=== PATIENT | female | born 1970 | race Caucasian/White ===

== ENCOUNTER 2017-10-31 17:43 | Emergency (ER) | payer BC ==
[~2017-10-31] VITALS: Ht 152.4 cm; Wt 86.2 kg
[~2017-10-31 17:43] MED LIST: Clonazepam0.5 M1 PO; KETO10 PO; LEVSOD75 PO; METF500 PO; Metformin HCl500 M1 PO; PROM25 PO
[2017-10-31] MEDS ORDERED: SERT50 PO (18:19)
[2017-10-31 18:42] LABS: BASOPHILS ABSOLUTE AUTO 0.02 K/mm3 (0.00-0.23); BASOPHILS PERCENT AUTO 0 % (0-2); EOSINOPHILS ABSOLUTE AUTO 0.13 K/mm3 (0.00-0.68); EOSINOPHILS PERCENT AUTO 1 % (0-6); Hematocrit 41.7 % (33.0-51.0); Hemoglobin 14.3 g/dL (11.5-16.0); IMMATURE GRAN ABSOLUTE AUTO 0.02 K/mm3 (0.00-0.10); IMMATURE GRAN PERCENT AUTO 0 % (0-1); LYMPHOCYTES ABSOLUTE AUTO 3.85 K/mm3 (0.84-5.20); LYMPHOCYTES PERCENT AUTO 42 % (21-46); MONOCYTES PERCENT AUTO 10 % (4-13); Mean Corpuscular HGB 29.9 pg (26.0-34.0); Mean Corpuscular HGB Conc 34.3 g/dL (31.5-36.5); Mean Corpuscular Volume 87 fL (80-100); Mean Platelet Volume 9.9 fL (9.1-12.4); NEUTROPHILS ABSOLUTE AUTO 4.28 K/mm3 (1.96-9.15); NEUTROPHILS PERCENT AUTO 47 % (41-73); Platelet Count 267 K/mm3 (150-400); RDW Coefficient Variation 12.5 % (11.7-14.2); RDW Standard Deviation 39.7 fL (35.1-46.3); Red Blood Cell Count 4.79 M/mm3 (3.80-5.20)
[2017-10-31 18:53] LABS: Alanine Aminotransfer (ALT/SGP 33 U/L (12-78); Albumin, Blood 3.8 g/dL (3.4-5.0); Albumin/Globulin Ratio 0.9 (0.8-1.8); Alk Phos 75 U/L (50-136); Anion Gap 4 mmol/L (6-16); Aspartate Aminotrans (AST/SGOT 24 U/L (12-37); Bilirubin, Total 0.2 mg/dL (0.1-1.0); Blood Urea Nitrogen 12 mg/dL (8-24); Bun/Creatinine Ratio 12.9 (12.0-20.0); CO2, Blood 31 mmol/L (21-32); Calcium, Blood 8.9 mg/dL (8.5-10.1); Chloride, Blood 105 mmol/L (98-108); Creatinine, Blood 0.93 mg/dL (0.40-1.00); Globulin, Blood 4.1 g/dL (2.2-4.0); Glomerular Filtration Rate >60 (60-); Glucose, Blood 123 mg/dL (70-99); Potassium, Blood 3.3 mmol/L (3.5-5.5); Sodium, Blood 140 mmol/L (136-145); Total Protein, Blood 7.9 g/dL (6.4-8.2)
[2017-10-31] MEDS ORDERED: Kristalose20 GM PO (19:17)
== END 2017-10-31 19:34 | disposition home or self-care (01) ==
LOC: ER 17:43
PROVIDERS: Emergency Medicine
DX: K59.00 Constipation, unspecified (principal); R93.8 Abnormal findings on diagnostic imaging of other specified body structures; E11.9 Type 2 diabetes mellitus without complications
CPT/HCPCS: 36415; 74022; 76830; 76856; 80053; 85025; 99284

== ENCOUNTER 2024-03-01 13:45 | Day surgery (SDC) | payer BC ==
[~2024-03-01] VITALS: Ht 152.4 cm; Wt 16.5 kg
[~2024-03-01 13:45] MED LIST changes: +Atropine Sulfate 0.1 MG/ML 10ML SYR ONE; +Glycopyrrolate 0.2 MG/ML 1MLVIAL ONE; +Kristalose20 GM PO; +Lactated Ringer's 1,000 ML IV ONE; +Lidocaine 2% 5 ML SDV ONE; +Lidocaine HCl/Pf 1% 5 ML VIAL ONE; +Methylene Blue 1% 100 MG/10 ML VIAL ONE; +Ondansetron HCl 2 MG / ML 2ML Vial ONE; +SERT50 PO; +ePHEDrine Sulfate 50 MG/ML 1ML Injection ONE; +propofoL 50 ML IV ONE
[2024-03-01] MEDS ORDERED: PROG100 (14:07)
[2024-03-01] MEDS ORDERED: Prinivil10 MG (14:07)
[2024-03-01] MEDS ORDERED: ZEPBOUND2.5 MG/0.5 (14:08)
[2024-03-01] MEDS ORDERED: Lactated Ringer's 1,000 ML IV ONE (15:18)
[2024-03-01] MEDS ORDERED: Midazolam HCL 1 MG/ML 5MLVIAL ONE (15:28)
[2024-03-01 16:36] VITALS: BP 112/87
--- NOTE | 2024-03-01 16:56 | NUR ---
03/01/24 1656 Ivonne Castillo PT BEGAN HICCUPING, WRETCHING, WHICH DEVELOPED INTO COUGHING. RN GAVE ZOFRAN 4MG, SUCTIONED NEEDED, NO IMPROVEMENT. O2 SATS FLUCTUATED BETWEEN LOW 90S TO MID 80S, TECH IN ROOM PROVIDED JAW LIFT TO PT. PER DR. VACA, ADMINISTER ROBINOL 0.2MG, RN ADMINISTERED ROBINOL 0.2MG TO REDUCE SECRETIONS. PT CONTINUED TO COUGH AND WRETCH, RN PLACED PC TO ANOTHER NURSE AND PC TO AVAILABLE ANESTHESIA FOR PRECAUTIONARY MEASURES. PT'S O2 SATS BEGAN TO IMPROVE AND STAY AT 100% ON 5L O2, PT WOKE UP W/ NO COMPLAINTS OF SHORTNESS OF BREATH, DIFFICULTY BREATHING. DENIED PAIN AND NAUSEA.
== END 2024-03-01 16:34 | disposition home or self-care (01) ==
LOC: ORSCSDS 13:45
PROVIDERS: Internal Medicine Gastroenterology
PROC: 0DBK8ZX Excision of Ascending Colon, Via Natural or Artificial Opening Endoscopic, Diagnostic (ICD-10-PCS; principal; 2024-03-01 15:00)
DX: Z12.11 Encounter for screening for malignant neoplasm of colon (principal); Z86.010 Personal history of colon polyps; D12.2 Benign neoplasm of ascending colon; Z80.0 Family history of malignant neoplasm of digestive organs; Z83.719 Family history of colon polyps, unspecified; F32.A Depression, unspecified; F41.9 Anxiety disorder, unspecified; Z98.84 Bariatric surgery status
CPT/HCPCS: 88305; J0461; J2001; J2250; J2405; J2704; J7120; Q9968

== ENCOUNTER → 2024-05-25 | Outpatient (CLI) | payer BC ==
[~2024-05-25] MED LIST changes: -Atropine Sulfate 0.1 MG/ML 10ML SYR ONE; -Glycopyrrolate 0.2 MG/ML 1MLVIAL ONE; -Lactated Ringer's 1,000 ML IV ONE; -Lidocaine 2% 5 ML SDV ONE; -Lidocaine HCl/Pf 1% 5 ML VIAL ONE; -Methylene Blue 1% 100 MG/10 ML VIAL ONE; -Ondansetron HCl 2 MG / ML 2ML Vial ONE; +PROG100; +Prinivil10 MG; +ZEPBOUND2.5 MG/0.5; -ePHEDrine Sulfate 50 MG/ML 1ML Injection ONE; -propofoL 50 ML IV ONE
== END | disposition home or self-care (01) ==
LOC: LAB 13:12 → LAB SHORT 13:12
DX: N95.0 Postmenopausal bleeding (principal)
CPT/HCPCS: 88305